=== PATIENT | female | born 1990 | race Hispanic/Latino ===

== ENCOUNTER 2018-06-03 12:39 | Inpatient (IN) | payer OTHER ==
[~2018-06-03] VITALS: Ht 160 cm; Wt 72.6 kg
[2018-06-03] MEDS ORDERED: LACTATED RINGERS 1000ML 1,000 ML IV SCH (13:30)
[2018-06-03 14:02] LABS: APPEARANCE,URINE Clear (CLEAR); BILIRUBIN,URINE Negative (NEGATIVE); COLOR,URINE Yellow (YELLOW); GLUCOSE, URINE (UA) Negative (NEGATIVE); KETONES,URINE 15 mg/dL (NEGATIVE); LEUKOCYTE ESTERASE ,URINE Trace (NEGATIVE); NITRATE,URINE Negative (NEGATIVE); OCCULT BLOOD,URINE Negative (NEGATIVE); PROTEIN,URINE Negative (NEGATIVE)
[2018-06-03 14:20] LABS: BACTERIA,URINE Rare /HPF (None Seen); RBC,URINE None Seen /HPF (0-1); SQUAMOUS EPITHELIAL CELL,UR Rare /HPF (0-2); WBC,URINE 0-1 /HPF (0-1)
[2018-06-03] MEDS ORDERED: TERBUTALINE SULFATE VIAL 1MG/ML SQ SCH (15:15)
[2018-06-03] MEDS ORDERED: TERBUTALINE SULFATE VIAL 1MG/ML SQ ONE (15:16)
== END 2018-06-03 17:00 | disposition home or self-care (01) | DRG 833 ==
LOC: LDH 12:39
PROVIDERS: ADMIT Obstetrics & Gynecology; ATTEND Obstetrics & Gynecology
DX: O34.219 Maternal care for unspecified type scar from previous cesarean delivery (principal)
CPT/HCPCS: 81001; 96360; 96361; 96372; J3105; J7120

== ENCOUNTER 2018-06-14 12:55 | Observation (INO) | payer OTHER ==
[~2018-06-14] VITALS: Ht 157.5 cm; Wt 73.0 kg
== END 2018-06-14 15:47 | disposition home or self-care (01) ==
LOC: LDH 12:55
PROVIDERS: ADMIT Obstetrics & Gynecology; ATTEND Obstetrics & Gynecology
DX: O42.92 Full-term premature rupture of membranes, unspecified as to length of time between rupture and onset of labor (principal); Z3A.38 38 weeks gestation of pregnancy
CPT/HCPCS: G0378

== ENCOUNTER 2018-06-16 13:10 | Inpatient (IN) | payer OTHER ==
[~2018-06-16] VITALS: Ht 162.6 cm; Wt 71.2 kg
[2018-06-16 13:52] LABS: APPEARANCE,URINE Clear (CLEAR); BILIRUBIN,URINE Negative (NEGATIVE); COLOR,URINE Yellow (YELLOW); GLUCOSE, URINE (UA) Negative (NEGATIVE); KETONES,URINE Negative (NEGATIVE); LEUKOCYTE ESTERASE ,URINE Negative (NEGATIVE); NITRATE,URINE Negative (NEGATIVE); OCCULT BLOOD,URINE Negative (NEGATIVE); PH,URINE 8.5 (5.0-8.0); PROTEIN,URINE Negative (NEGATIVE)
[2018-06-16] MEDS ORDERED: CEFAZOLIN SODIUM 1 GM VIAL IVP PRN (14:15)
[2018-06-16] MEDS ORDERED: LACTATED RINGERS 1000ML 1,000 ML IV SCH (14:15)
[2018-06-16 14:16] LABS: HEMATOCRIT 39.4 % (36-48); MEAN CORPUSCULAR HEMOGLOBIN 30.5 pg (27.0-33.0); MEAN CORPUSCULAR HGB CONC 34.4 g/dL (32.0-36.0); MEAN CORPUSCULAR VOLUME 88.9 fL (79-99); PLATELET COUNT (AUTO) 180 K/uL (130-400); RED BLOOD CELL COUNT(AUTO) 4.44 MIL/uL (4.00-5.50); RED CELL DISTRIBUTION WIDTH 13.5 % (11.0-15.5); WHITE BLOOD COUNT (AUTO) 7.3 K/uL (4.8-10.8)
[2018-06-16] MEDS ORDERED: SENSORCAINE/DEXT/PF 0.75% 2ML AMP IJ ONE (14:45)
[2018-06-16] MEDS ORDERED: EPINEPHRINE 1 MG/ML AMPULE ONE (14:53)
[2018-06-16] MEDS ORDERED: DURAMORPH PF1 MG/ML 10ML AMP IV ONE (14:54)
[2018-06-16] MEDS ORDERED: OXYTOCIN 10 UNIT/1ML 10ML VIAL ONE (15:18)
[2018-06-16] MEDS ORDERED: EPHEDRINE SULFATE 50 MG/ML AMPULE ONE (15:19)
[2018-06-16] MEDS ORDERED: ONDANSETRON HCL 4 MG/2 ML VIAL ONE (15:42)
[2018-06-16] MEDS ORDERED: MIDAZOLAM HCL 1 MG/ML 2ML VIAL ONE (15:45)
[2018-06-16] MEDS ORDERED: MISOPROSTOL 200 MCG TABLET ONE (16:00)
[2018-06-16] MEDS ORDERED: OXYTOCIN-LR 20 UNITS/1000 ML 1,000 ML IV PRN (16:25)
[2018-06-16] MEDS ORDERED: MEPERIDINE-PF 75 MG/ML SYG IM PRN (16:30)
[2018-06-16] MEDS ORDERED: SODIUM CHLORIDE 0.9% 10 ML VIAL IVP PRN (16:30)
[2018-06-16] MEDS ORDERED: PROMETHAZINE HCL 25 MG/ML 1ML AMPULE IM PRN ×2 (16:30→17:45)
[2018-06-16 17:28] VITALS: BP 109/70
[2018-06-16] MEDS ORDERED: HYDROCODONE/ACETAMINOPHEN 5/325 MG TAB PO PRN (17:45)
[2018-06-16] MEDS ORDERED: METOCLOPRAMIDE 10 MG/2 ML VIAL IVP PRN (17:45)
[2018-06-16] MEDS ORDERED: ONDANSETRON HCL 4 MG/2 ML VIAL IVP PRN ×2 (17:45)
[2018-06-16] MEDS ORDERED: DiphenhydrAMINE HCL 50 MG/ML VIAL IVP PRN (17:45)
[2018-06-16] MEDS ORDERED: EPHEDRINE SULFATE 50 MG/ML AMPULE IVP PRN (17:45)
[2018-06-16] MEDS ORDERED: MORPHINE SULFATE 2 MG/ML 1ML SYG IVP PRN (17:45)
[2018-06-16] MEDS ORDERED: ONDANSETRON HCL 4 MG/2 ML 8 MG in SODIUM CHLORIDE 0.9% 50 ML IVP NR (17:45)
[2018-06-16] MEDS ORDERED: NALOXONE HCL 0.4 MG/1 ML ML IVP PRN ×2 (17:45)
[2018-06-16] MEDS: HYDROCODONE/ACETAMINOPHEN 5/325 MG TAB PO PRN (19:21)
[2018-06-16 19:58] VITALS: BP 100/65
[2018-06-16] MEDS: DEXTROSE 5 %-0.45 % NACL 1,000 ML IV PRN (22:57)
[2018-06-16 23:20] VITALS: BP 104/65
[2018-06-17 03:40] VITALS: BP 99/55
[2018-06-17] MEDS: HYDROCODONE/ACETAMINOPHEN 5/325 MG TAB PO PRN (04:02)
[2018-06-17 05:34] LABS: HEMATOCRIT 33.2 % (36-48); MEAN CORPUSCULAR HEMOGLOBIN 30.6 pg (27.0-33.0); MEAN CORPUSCULAR HGB CONC 34.1 g/dL (32.0-36.0); MEAN CORPUSCULAR VOLUME 89.7 fL (79-99); PLATELET COUNT (AUTO) 127 K/uL (130-400); RED CELL DISTRIBUTION WIDTH 13.7 % (11.0-15.5); WHITE BLOOD COUNT (AUTO) 7.7 K/uL (4.8-10.8)
[2018-06-17] MEDS: DEXTROSE 5 %-0.45 % NACL 1,000 ML IV PRN (06:40)
[2018-06-17 07:20] VITALS: BP 83/54
[2018-06-17 07:23] LABS: HEPATITIS Bs ANTIGEN SCREEN P Negative (Negative); RAPID PLASMA REAGIN NONREACTIVE (NONREACTIVE)
[2018-06-17] MEDS ORDERED: IBUPROFEN 600 MG TABLET ONE (09:00)
[2018-06-17] MEDS: DOCUSATE SODIUM 100 MG CAP PO SCH ×2 (09:00→21:17)
[2018-06-17] MEDS ORDERED: BISACODYL 10 MG SUPP.RECT RC PRN (09:00)
[2018-06-17] MEDS ORDERED: DIPH,PERTUSS(ACELL),TET VAC/PF 0.5 ML VIAL IM SCH (09:00)
[2018-06-17] MEDS ORDERED: DIPHENHYDRAMINE HCL 25 MG CAPSULE PO PRN (09:00)
[2018-06-17] MEDS ORDERED: DOCUSATE SODIUM 100 MG CAP PO ONE (09:00)
[2018-06-17] MEDS ORDERED: ACETAMINOPHEN EXTRA STRENGTH 500 MG TABLET PO PRN (09:00)
[2018-06-17] MEDS ORDERED: HYDROCODONE/ACETAMINOPHEN 5/325 MG TAB PO PRN (09:00)
[2018-06-17] MEDS ORDERED: SIMETHICONE 80 MG TAB.CHEW ONE (09:00)
[2018-06-17] MEDS ORDERED: DIPH,PERTUSS(ACELL),TET VAC/PF 0.5 ML VIAL IM ONE (09:01)
[2018-06-17 11:28] VITALS: BP 97/65
[2018-06-17] MEDS: ACETAMINOPHEN-CODEINE 300/30MG TAB PO PRN ×2 (12:10→18:25)
[2018-06-17 15:40] VITALS: BP 97/56
[2018-06-17] MEDS: SIMETHICONE 80 MG TAB.CHEW PO PRN ×3 (16:11→21:17)
[2018-06-17] MEDS: IBUPROFEN 600 MG TABLET PO PRN (16:12)
[2018-06-17 19:47] VITALS: BP 94/55
[2018-06-17 23:06] VITALS: BP 97/57
[2018-06-18] MEDS: IBUPROFEN 600 MG TABLET PO PRN ×2 (00:59→08:44)
[2018-06-18 03:42] VITALS: BP 103/68
[2018-06-18] MEDS: ACETAMINOPHEN-CODEINE 300/30MG TAB PO PRN (03:47)
[2018-06-18 07:40] VITALS: BP 103/54
[2018-06-18] MEDS: DOCUSATE SODIUM 100 MG CAP PO SCH (08:42)
[2018-06-18 11:33] VITALS: BP 108/57
== END 2018-06-18 13:45 | disposition home or self-care (01) | DRG 788 ==
LOC: LDH 13:10 → OBSVTOIN 13:10 → WSH 17:25
PROVIDERS: ADMIT Obstetrics & Gynecology; ATTEND Obstetrics & Gynecology
PROC: 10D00Z1 Extraction of Products of Conception, Low, Open Approach (ICD-10-PCS; principal; 2018-06-16 15:00)
PROC: 3E02340 Introduction of Influenza Vaccine into Muscle, Percutaneous Approach (ICD-10-PCS; 2018-06-17)
PROC: 3E0234Z Introduction of Serum, Toxoid and Vaccine into Muscle, Percutaneous Approach (ICD-10-PCS; 2018-06-17)
DX: O34.211 Maternal care for low transverse scar from previous cesarean delivery (principal); O69.81X0 Labor and delivery complicated by cord around neck, without compression, not applicable or unspecified; Z37.0 Single live birth; Z3A.38 38 weeks gestation of pregnancy; Z23 Encounter for immunization
CPT/HCPCS: 36415; 59510; 81003; 85027; 86592; 86701; 86850; 86900; 86901; 87340; 87390; 90715; A4344; A4606; G0008; J0171; J0690; J1200; J2250; J2274; J2405; J2590; J3490; J7120; Q2038